=== PATIENT | female | born 1945 | race Caucasian/White ===

== ENCOUNTER 2018-11-21 15:11 | Outpatient (CLI) | payer MEDICARE | END 2018-11-21 15:12 | disposition critical access hospital (66) | LOC: EMS 15:11 | PROVIDERS: ATTEND Surgery | DX: R55 Syncope and collapse (principal); R53.1 Weakness | CPT/HCPCS: A0425; A0427 ==

== ENCOUNTER 2018-11-21 15:28 | Emergency (ER) | payer MEDICARE, OTHER ==
[2018-11-21 15:55] LABS: BASOPHILS % (AUTO) 0.7 %; EOSINOPHILS # (AUTO) 0.1 10^3/uL (0.0-0.7); EOSINOPHILS % (AUTO) 1.8 %; HGB - HEMOGLOBIN 11.6 g/dL (12.0-16.0); LYMPHOCYTES # (AUTO) 1.1 10^3/uL (1.5-3.5); LYMPHOCYTES % (AUTO) 23.5 %; MEAN CORPUSCULAR HEMOGLOBIN 28.6 pg (27.0-31.0); MEAN CORPUSCULAR HGB CONC 33.7 g/dL (32.0-36.0); MEAN CORPUSCULAR VOLUME 84.8 fL (81.0-99.0); MEAN PLATELET VOLUME 7.6 fL (7.9-10.8); MONOCYTES # (AUTO) 0.5 10^3/uL (0.0-1.0); MONOCYTES % (AUTO) 10.6 %; NEUTROPHILS % (AUTO) 63.4 %; PLT - PLATELET COUNT 203 10^3/uL (130-450); RED BLOOD COUNT 4.04 10^6/uL (4.20-5.40); RED CELL DISTRIBUTION WIDTH 13.3 % (12.0-15.0); WHITE BLOOD COUNT 4.7 x10^3/uL (4.8-10.8)
[2018-11-21 16:07] LABS: ALBUMIN 3.6 g/dL (3.2-5.5); ALBUMIN/GLOBULIN RATIO 1.4 (1.0-2.2); BILIRUBIN,TOTAL 0.3 mg/dL (0.2-1.0); CALCIUM 8.4 mg/dL (8.5-10.3); CREATININE 0.7 mg/dL (0.4-1.0); TOTAL PROTEIN 6.1 g/dL (6.7-8.2)
[2018-11-21] MEDS ORDERED: POTASSIUM CHLORIDE 20 MEQ TABLET PO STA (16:10)
[2018-11-21] MEDS ORDERED: SODIUM CHLORIDE 0.9% 1,000 ML IV ONE (16:10)
--- NOTE | 2018-11-21 16:45 | ED Physician Documentation ---
History of Present Illness - Stated complaint Stated Complaint: NEAR SYNCOPE - Chief complaint Chief Complaint: Neuro - Additonal information Additional information: 73-year-old female presents the emergency department after a syncopal episode which occurred today just prior to arrival. The patient gave blood earlier in the day and then went shopping at [facility]. The patient then went to use the restroom and while using the restroom became very lightheaded and was able to get herself down to the ground. EMS was called. The patient denies chest pain, palpitations or dyspnea before or after the event. No reports of trauma. Presently the patient feels back to her baseline. Review of Systems Constitutional: denies: Fever, Chills Eyes: denies: Discharge Ears: denies: Ear pain Nose: denies: Congestion Throat: denies: Sore throat Cardiac: denies: Chest pain / pressure, Palpitations Respiratory: denies: Dyspnea GI: denies: Abdominal Pain : denies: Dysuria Skin: denies: Rash Musculoskeletal: denies: Neck pain Neurologic: reports: Syncope. denies: Generalized weakness, Focal weakness Immunocompromised: denies: Chemotherapy PD PAST MEDICAL HISTORY - Allergies Allergies/Adverse Reactions: Allergies Allergy/AdvReac Type Severity Reaction Status Date / Time Penicillins Allergy Hives Verified 11/21/18 15:34 Sulfa (Sulfonamide Allergy Hives Verified 11/21/18 15:34 Antibiotics) PD ED PE NORMAL - General General: Alert and oriented X 3, No acute distress - HEENT HEENT: Atraumatic, PERRL, EOMI, Ears normal, Pharynx benign - Cardiac Cardiac: RRR, Strong equal pulses - Respiratory Respiratory: No respiratory distress - Abdomen Abdomen: Soft, Non tender - Derm Derm: Normal color - Extremities Extremities: No deformity - Neuro Neuro: Alert and oriented X 3, direct marketing intern 2-12 intact, No motor deficit, Normal speech - Psych Psych: Normal affect Results - Vitals Vitals: Vital Signs - 24 hr 11/21/18 11/21/18 15:30 15:41 Temperature 37.1 C Heart Rate 58 L Respiratory 15 16 Rate Blood Pressure 120/66 O2 Saturation 97 Oxygen O2 Source Room air - EKG (time done) No standard instances Rhythm: NSR Intervals: Normal NC, QRS normal QRS: Normal Ischemia: Normal ST segments - Labs Labs: Laboratory Tests 0311/21/18 11/21/18 15:45 15:45 15:45 WBC 4.7 L RBC 4.04 L Hgb 11.6 L Hct 34.3 L MCV 84.8 MCH 28.6 MCHC 33.7 RDW 13.3 Plt Count 203 MPV 7.6 L Neut # (Auto) 3.0 Lymph # (Auto) 1.1 L Emanuel # (Auto) 0.5 Eos # (Auto) 0.1 Baso # (Auto) 0.0 Absolute Nucleated RBC 0.00 Nucleated RBC % 0.0 Sodium 135 Potassium 3.1 L Chloride 100 L Carbon Dioxide 30 Anion Gap 5.0 L BUN 12 Creatinine 0.7 Estimated GFR (MDRD) 82 L Glucose 104 H Calcium 8.4 L Total Bilirubin 0.3 AST 20 ALT 19 Alkaline Phosphatase 56 Troponin I < 0.04 Total Protein 6.1 L Albumin 3.6 Globulin 2.5 Albumin/Globulin Ratio 1.4 Lipase 36 - Rads (name of study) CXR Radiology: Final report received, See rad report (IMPRESSION: No acute cardiopulmonary abnormality. ) PD MEDICAL DECISION MAKING - ED course ED course: Well-appearing, nontoxic patient. Her episode today seems to be at a volume issue after getting blood. Presently the patient appears to be back at her baseline and her workup does not show any significant abnormality that would necessitate admission to the hospital. The patient appears appropriate to follow-up with primary care for recheck and reevaluation. The patient will return to the emergency department for any worsening or any concerns Departure - Departure Disposition: 01 Home, Self Care Clinical Impression: Syncope Qualifiers: Syncope type: unspecified Qualified Code(s): R55 - Syncope and collapse Condition: Good Instructions: ED Syncope Vasovagal Comments: Please follow-up with your primary care physician this coming week for recheck. If you have ongoing symptoms she may require a Holter monitor to further assess your symptoms and possibly an outpatient echocardiogram. Please return to the emergency department for any worsening or any concerns
--- NOTE | 2018-11-21 16:45 | XRAY Report ---
Reason: syncope, Palpitations Procedure Date: 11/21/2018 Accession Number: [id number] / [id number] Procedure: XR - Chest 2 View X-Ray CPT Code: 38437 FULL RESULT: EXAM: CHEST RADIOGRAPHY EXAM DATE: 11/21/2018 04:14 PM. CLINICAL HISTORY: Syncope, Palpitations. COMPARISON: None. TECHNIQUE: 2 views. FINDINGS: Lungs/Pleura: No focal opacities evident. No pleural effusion. No pneumothorax. Normal volumes. Mediastinum: Heart and mediastinal contours are unremarkable. Other: Several ECG leads overlie the chest. IMPRESSION: No acute cardiopulmonary abnormality. RADIA
[2018-11-21 18:04] VITALS: BP 117/62
== END 2018-11-21 18:03 | disposition home or self-care (01) ==
LOC: EDUNIT# → ED 15:28
DX: R55 Syncope and collapse (principal)
CPT/HCPCS: 36415; 71046; 80053; 83690; 84484; 85025; 93005; 96360; 99283; 99284; A9270

== ENCOUNTER 2022-06-23 16:28 | Outpatient (CLI) | payer MEDICARE | END 2022-06-23 16:29 | disposition critical access hospital (66) | LOC: EMS 16:28 | DX: R55 Syncope and collapse (principal) | CPT/HCPCS: A0425; A0427 ==

== ENCOUNTER 2022-06-23 16:31 | Emergency (ER) | payer MEDICARE ==
[2022-06-23] MEDS ORDERED: SODIUM CHLORIDE 0.9% 1,000 ML IV STA (17:06)
--- NOTE | 2022-06-23 17:09 | ED Physician Documentation ---
History of Present Illness - Stated complaint Stated Complaint: SYNCOPE - Chief complaint Chief Complaint: Neuro - History obtained from History obtained from: Patient - History of Present Illness Timing: Today Pain level max: 0 Pain level now: 0 - Additonal information Additional information: Patient is a 77-year-old female who presents to the emergency department with syncope today. She gave blood and on the way home she had a syncopal event in the car. She has passed out several times after giving blood in the past. She states its not unusual for her. No headache. No chest pain. No shortness of breath. Nothing makes it better or worse. She feels better now. She states she just feels tired. She states that she has been worked up for syncope in the past with no cause found. Review of Systems Ten Systems: 10 systems reviewed and negative Constitutional: denies: Fever, Chills Cardiac: denies: Chest pain / pressure, Palpitations Respiratory: denies: Cough GI: denies: Vomiting, Diarrhea Skin: denies: Rash Musculoskeletal: denies: Neck pain, Back pain PD PAST MEDICAL HISTORY - Past Medical History Past Medical History: Yes Cardiovascular: Hypertension, High cholesterol Psych: Anxiety - Present Medications Home Medications: Ambulatory Orders Medication Instructions Recorded Confirmed Ondansetron Odt [Zofran] 4 mg TL Q6H PRN #10 tablet 06/23/22 Potassium Chloride 20 meq PO DAILY #5 tab 06/23/22 - Allergies Allergies/Adverse Reactions: Allergies Allergy/AdvReac Type Severity Reaction Status Date / Time Penicillins Allergy Hives Verified 11/21/18 15:34 Sulfa (Sulfonamide Allergy Hives Verified 11/21/18 15:34 Antibiotics) - Living Situation Living Situation: reports: With family Living Arrangement: reports: At home - Social History Does the pt smoke?: No Does the pt have substance abuse?: No PD ED PE NORMAL - Vitals Vital signs reviewed: Yes - General General: Alert and oriented X 3, No acute distress, Well developed/nourished - HEENT HEENT: Atraumatic, PERRL, Moist mucous membranes, Pharynx benign, Dentition benign - Neck Neck: Supple, no meningeal sign, No bony TTP - Cardiac Cardiac: RRR, Strong equal pulses - Respiratory Respiratory: No respiratory distress, Clear bilaterally - Abdomen Abdomen: Soft, Non tender, Non distended - Derm Derm: Warm and dry - Extremities Extremities: No edema, No calf tenderness / cord - Neuro Neuro: Alert and oriented X 3 - Psych Psych: Normal mood, Normal affect Results - Vitals Vitals: Vital Signs - 24 hr 06/23/22 06/23/22 16:48 18:39 Temperature 36.6 C Heart Rate 56 L 71 Respiratory 18 20 Rate Blood Pressure 115/90 H 134/81 H O2 Saturation 92 100 Oxygen O2 Source Room air - EKG (time done) 1637 Rate: Rate (enter#) (56) Rhythm: NSR [place]: Normal Intervals: Normal CO QRS: LVH Ischemia: Q waves (I, aVL), T wave inversion (III) - Labs Labs: Laboratory Tests 06/23/22 06/23/22 06/23/22 16:37 16:37 16:37 WBC 8.0 RBC 4.49 Hgb 11.7 L Hct 36.0 L MCV 80.2 L MCH 26.1 L MCHC 32.5 RDW 16.8 H Plt Count 227 MPV 9.6 Neut # (Auto) 4.9 Lymph # (Auto) 2.3 Nolan # (Auto) 0.6 Eos # (Auto) 0.1 Baso # (Auto) 0.0 Absolute Nucleated RBC 0.00 Nucleated RBC % 0.0 Sodium 133 L Potassium 2.7 L Chloride 95 L Carbon Dioxide 30 Anion Gap 8.0 BUN 15 Creatinine 0.9 Estimated GFR (MDRD) 61 L Glucose 108 H Calcium 9.0 Phosphorus 3.9 Magnesium 2.4 PD MEDICAL DECISION MAKING - ED course Complexity details: reviewed results, re-evaluated patient, considered differential, d/w patient, d/w family ED course: Patient was found to be hypokalemic and also appears to be mildly dehydrated. She was given IV fluids and potassium. Symptoms resolved. Patient feels much better. Currently asymptomatic. She has passed out on giving blood before, we will have her follow-up with her doctor for further care. Patient is well- appearing, nontoxic. Afebrile. No chest pain. No shortness of breath. No palpitations. No arrhythmia on telemetry. Patient counseled regarding signs and symptoms for which I believe and urgent re-evaluation would be necessary. Patient with good understanding of and agreement to plan and is comfortable going home at this time This document was made in part using voice recognition software. While efforts are made to proofread this document, sound alike and grammatical errors may occur. Departure - Departure Disposition: 01 Home, Self Care Clinical Impression: Hypokalemia Syncope Qualifiers: Syncope type: unspecified Qualified Code(s): R55 - Syncope and collapse Condition: Good Instructions: ED Potassium Deficiency, ED Syncope Vasovagal Follow-Up: your,doctor in 1 week [Other] - Within 1 week Prescriptions: Potassium Chloride 20 meq PO DAILY #5 tab Ondansetron Odt [Zofran] 4 mg TL Q6H PRN #10 tablet PRN Reason: Nausea / Vomiting Comments: You should have your potassium rechecked next week with your doctor. Please take the potassium as prescribed. Please return if you worsen. Your prescription was sent to [facility] in [place]. Discharge Date/Time: 06/23/22 18:39
[2022-06-23 17:16] LABS: BASOPHILS % (AUTO) 0.4 %; EOSINOPHILS # (AUTO) 0.1 10^3/uL (0.0-0.7); EOSINOPHILS % (AUTO) 1.1 %; HGB - HEMOGLOBIN 11.7 g/dL (12.0-16.0); LYMPHOCYTES # (AUTO) 2.3 10^3/uL (1.5-3.5); LYMPHOCYTES % (AUTO) 28.9 %; MEAN CORPUSCULAR HEMOGLOBIN 26.1 pg (27.0-31.0); MEAN CORPUSCULAR HGB CONC 32.5 g/dL (32.0-36.0); MEAN CORPUSCULAR VOLUME 80.2 fL (81.0-99.0); MEAN PLATELET VOLUME 9.6 fL (7.9-10.8); MONOCYTES # (AUTO) 0.6 10^3/uL (0.0-1.0); MONOCYTES % (AUTO) 8.1 %; NEUTROPHILS # (AUTO) 4.9 10^3/uL (1.5-6.6); NEUTROPHILS % (AUTO) 61.2 %; PLT - PLATELET COUNT 227 10^3/uL (130-450); RED BLOOD COUNT 4.49 10^6/uL (4.20-5.40); RED CELL DISTRIBUTION WIDTH 16.8 % (12.0-15.0)
[2022-06-23 17:26] LABS: CREATININE 0.9 mg/dL (0.4-1.0); POTASSIUM 2.7 mmol/L (3.5-5.0)
[2022-06-23] MEDS ORDERED: PROMETHAZINE INJ 12.5 MG in SODIUM CHLORIDE 0.9% 50 ML IV STA (17:37)
[2022-06-23] MEDS ORDERED: POTASSIUM CHLORIDE 20 MEQ TABLET PO STA (17:37)
[2022-06-23] MEDS ORDERED: PROMETHAZINE 25 MG/1 ML VIAL ONE (17:50)
[2022-06-23 17:55] LABS: MAGNESIUM 2.4 mg/dL (1.7-2.8); PHOSPHORUS 3.9 mg/dL (2.5-4.6)
[2022-06-23 18:40] VITALS: BP 134/81
== END 2022-06-23 18:39 | disposition home or self-care (01) ==
LOC: EDUNIT# → ED 16:31
DX: E87.6 Hypokalemia (principal); E86.0 Dehydration; R55 Syncope and collapse; R53.83 Other fatigue; I10 Essential (primary) hypertension
CPT/HCPCS: 36415; 80048; 83735; 84100; 85025; 93005; 96361; 96365; 99283; 99284; A9270; J7040